=== PATIENT | female | born 1940 | race Caucasian/White ===

== ENCOUNTER 2016-11-26 01:04 | Emergency (ER) | payer MEDICARE, MEDICAID ==
[~2016-11-26] VITALS: Ht 160 cm; Wt 59.0 kg
[2016-11-26] MEDS ORDERED: ONDANSETRON HCL 4MG/2ML VIAL IV STA (01:28)
[2016-11-26] MEDS ORDERED: MORPHINE SULFATE 4 MG/ML CPJ (NOT FOR IM USE) IV STA (01:28)
[2016-11-26 02:08] LABS: BASOPHILS % 0.6 % (0.0-2.0); EOSINOPHILS % 1.6 % (0.0-5.0); HEMATOCRIT. 30.8 % (36.0-48.0); HEMOGLOBIN. 10.6 g/dL (12.0-16.0); LYMPHOCYTES % 29.3 % (20.0-50.0); MEAN CORPUSCULAR HEMOGLOBIN 32.3 pg (28.0-32.0); MEAN CORPUSCULAR VOLUME 93.7 fL (81.0-99.0); MEAN PLATELET VOLUME 8.2 fl (7.4-10.4); MONOCYTES % 10.1 % (2.0-8.0); NEUTROPHILS % 58.4 % (40.0-76.0); PLATELET 185 x1000/uL (130-400); RED BLOOD CELL COUNT 3.29 mill/uL (4.2-5.4); RED CELL DISTRIBUTION WIDTH 13.6 % (11.6-14.6)
[2016-11-26] MEDS ORDERED: ONDANSETRON HCL 4MG/2ML VIAL IV ONE (02:45)
[2016-11-26] MEDS ORDERED: PROPOFOL 200MG/20ML VIAL IV ONE ×2 (02:45→03:45)
[2016-11-26 05:28] VITALS: BP 133/67
== END 2016-11-26 05:32 | disposition home or self-care (01) ==
LOC: ER 01:04
DX: S43.101A Unspecified dislocation of right acromioclavicular joint, initial encounter (principal); I10 Essential (primary) hypertension; W01.0XXA Fall on same level from slipping, tripping and stumbling without subsequent striking against object, initial encounter; Y93.89 Activity, other specified; Y92.89 Other specified places as the place of occurrence of the external cause
CPT/HCPCS: 23650; 36415; 71010; 73030; 73060; 80048; 85025; 93005; 96374; 96375; 96376; 99152; 99285; J2270; J2405; A4565; J2704; L3670